=== PATIENT | male | born 1980 | race Caucasian/White ===

== ENCOUNTER 2019-11-12 15:22 | Emergency (ER) | payer BC ==
[~2019-11-12] VITALS: Ht 172.7 cm; Wt 100.0 kg
--- NOTE | 2019-11-12 15:42 | PHYS DOC ---
General Adult EDM: Chief Complaint: CHEST PAIN HPI: HPI: Patient is a 39 year old male who presents with states this afternoon he was at work when he began having midsternal chest pressure, shortness of air and dizziness. He states that when symptoms starting he was looking for a part at work but he was not doing anything stressful and there is nothing that gave him anxiety. He states he has not been stressed lately. He states it lasted a couple of minutes and then began to subside. He states that when EMS arrived it was already subsided. EMS gave him aspirin 324 mg and 1 nitro. Patient states he no longer has any symptoms. He currently denies chest pain, chest pressure, shortness of air, dizziness, headache, abdominal pain, nausea, vomiting diarrhea, fever, cough, numbness or tingling, focal weakness, vision changes. He denies any pain. He states that he is a smoker. Patient does drink a sixpack a day and 2 shots. Patient does have a history of anxiety. He states he has not been to a doctor for quite some time so he is unsure if he has any other comorbidities. Review of Systems: Review of Systems: Constitutional: Denies fever or chills. [] Eyes: Denies change in visual acuity. [] HENT: Denies nasal congestion or sore throat. [] Respiratory: Denies cough. + shortness of breath. [] Cardiovascular: chest pain or denies edema. [] GI: Denies abdominal pain, nausea, vomiting, bloody stools or diarrhea. [] : Denies dysuria. [] Musculoskeletal: Denies back pain or joint pain. [] Integument: Denies rash. [] Neurologic: Denies headache, focal weakness or sensory changes. Dizziness[] Endocrine: Denies polyuria or polydipsia. [] Lymphatic: Denies swollen glands. [] Psychiatric: Denies depression. +anxiety. [] Heart Score: HEART Score for Chest Pain: HEART Score for Chest Pain Response (Comments) Value History Slighlty/Non-Suspicious 0 ECG Normal 0 Age < 45 0 Risk Factors 1 or 2 Risk Factors 1 Troponin < Normal Limit 0 Total 1 Risk Factors: Risk Factors: DM, Current or recent (<one month) smoker, HTN, HLP, family h istory of CAD, obesity. Risk Scores: Score 0 - 3: 2.5% MACE over next 6 weeks - Discharge Home Score 4 - 6: 20.3% MACE over next 6 weeks - Admit for Clinical Observation Score 7 - 10: 72.7% MACE over next 6 weeks - Early Invasive Strategies Allergies: Allergies: Allergies Coded Allergies Type Severity Reaction Last Updated Verified No Known Drug Allergies 11/12/19 No Physical Exam: PE: Constitutional: Well developed, well nourished, no acute distress, non-toxic appearance. [] HENT: Normocephalic, atraumatic, bilateral external ears normal, oropharynx moist, no oral exudates, nose normal. [] Eyes: PERRLA, EOMI, conjunctiva normal, no discharge. [] Neck: Normal range of motion, no tenderness, supple, no stridor. [] Cardiovascular:Heart rate tachycardic regular rhythm, no murmur [] Lungs & Thorax: Bilateral breath sounds clear to auscultation [] Abdomen: Bowel sounds normal, soft, no tenderness, no masses, no pulsatile masses. [] Skin: Warm, dry, no erythema, no rash. [] Back: No tenderness, no CVA tenderness. [] Extremities: No tenderness, no cyanosis, no clubbing, ROM intact, Bilateral lower 1+ edema. [] Neurologic: Alert and oriented X 3, normal motor function, normal sensory function, no focal deficits noted. [] Psychologic: Affect normal, judgement normal, mood normal. [] EKG: EK and read by Dr. Alvarez as sinus tachycardia at 101 and no STEMI. [] Radiology/Procedures: Radiology/Procedures: [] Impression: [facility] [address] [place], [place] [id number] IMAGING REPORT Signed PATIENT: NELSY GIBBS ACCOUNT: [id number] : 1980 LOCATION: ER AGE: 39 SEX: M EXAM STATUS: PRE ER ORD. PHYSICIAN: MERNA GARCIA APRN REASON: chest pressure PROCEDURE: CHEST PA & LATERAL CHEST PA LATERAL History: chest pressure Comparison: None. Findings: Frontal and lateral views of the chest were obtained. The cardiomediastinal silhouette is normal. Pulmonary vasculature is normal. The lungs are clear. No pleural effusion or pneumothorax is seen. There is no acute bone abnormality. IMPRESSION: No acute cardiopulmonary process. Electronically signed by: Hernandez Shaw MD (11/12/2019 4:25 PM) [id number] DICTATED and SIGNED BY: HERNANDEZ SHAW MD DATE: 11/12/19 1625 Course & Med Decision Making: Course & Med Decision Making Pertinent Labs and Imaging studies reviewed. (See chart for details) See HPI. Patient does have 1+ lower extremity nonpitting edema bilaterally. Lungs are clear to auscultation in all lobes. Skin pink warm and dry. Alert and oriented x4. Speaks in full clear sentences. Patient states he does have a history of anxiety and states he has had anxiety attacks before but is on no medication. He states that he thinks this incident was his anxiety. Ambulatory with a steady gait. Heart score is a 1. Patient has not had any more chest pain, shortness of breath or dizziness since he has been here in the ED. EKG shows sinus rhythm and no STEMI. Troponin is normal. I have discussed this patient with Dr Alvarez and his care plan. Patient is discharged and to follow up with a primary care physician. [] [place] Disclaimer: Dragon Disclaimer: This electronic medical record was generated, in whole or in part, using a voice recognition dictation system. Departure Departure Impression: Primary Impression: Nonspecific chest pain Disposition: 01 HOME, SELF-CARE Condition: STABLE Referrals: CAL VITALE MD Patient Instructions: Chest Pain (Nonspecific) Additional Instructions: Follow up with a primary care provider as soon as possible. Your liver enzymes are elevated from alcohol use. Try to cut back your alcohol use. Drink plenty of fluids. If your chest pain returns or he began having shortness of breath dizziness or syncope return to the emergency room. Justicifation of Admission Dx: Justifications for Admission: Justification of Admission Dx: N/A MERNA GARCIA APRN Nov 12, 2019 15:42
[2019-11-12 16:06] LABS: BASO # 0.1 x10^3/uL (0.0-0.2); BASO % 1 % (0-3); EOS # 0.2 x10^3/uL (0.0-0.7); EOS % 2 % (0-3); HEMATOCRIT 42.9 % (39.0-53.0); HEMOGLOBIN 14.7 g/dL (13.0-17.5); LYMPH # 1.4 x10^3/uL (1.0-4.8); LYMPH % 16 % (24-48); MEAN CORPUSCULAR HEMOGLOBIN 33 pg (25-35); MEAN CORPUSCULAR HGB CONC 34 g/dL (31-37); MEAN CORPUSCULAR VOLUME 97 fL (79-100); MONO # 0.9 x10^3/uL (0.0-1.1); MONO % 11 % (0-9); NEUT # 6.1 x10^3/uL (1.8-7.7); NEUT % 70 % (31-73); PLATELET COUNT 198 x10^3/uL (140-400); RED BLOOD COUNT 4.43 x10^6/uL (4.30-5.70); RED CELL DISTRIBUTION WIDTH 13.9 % (11.5-14.5); WHITE BLOOD COUNT 8.7 x10^3/uL (4.0-11.0)
[2019-11-12 16:07] LABS: BILIRUBIN,URINE NEGATIVE (NEG); CLARITY,URINE CLEAR; COLOR,URINE YELLOW; NITRITE,URINE NEGATIVE (NEG); PROTEIN,URINE NEGATIVE (NEG-TRACE)
--- NOTE | 2019-11-12 16:28 | RAD ---
CHEST PA LATERAL History: chest pressure Comparison: None. Findings: Frontal and lateral views of the chest were obtained. The cardiomediastinal silhouette is normal. Pulmonary vasculature is normal. The lungs are clear. No pleural effusion or pneumothorax is seen. There is no acute bone abnormality. IMPRESSION: No acute cardiopulmonary process. Electronically signed by: Hernandez Black MD (11/12/2019 4:25 PM) [facility]
[2019-11-12 16:40] LABS: BACTERIA,URINE 0 /HPF (0-FEW); SQUAMOUS EPITHELIAL CELL,UR OCC /LPF
[2019-11-12 16:47] LABS: AMPHETAMINE/METHAMPHETAMINE NEG (NEG); BARBITURATES NEG (NEG); BENZODIAZEPINES NEG (NEG); COCAINE NEG (NEG); METHADONE NEG (NEG); OPIATES NEG (NEG)
[2019-11-12 16:48] LABS: CANNABINOIDS NEG (NEG); PHENCYCLIDINE NEG (NEG)
[2019-11-12 16:50] LABS: ALBUMIN/GLOBULIN RATIO 0.7 (1.0-1.7); CREATININE 0.8 mg/dL (0.7-1.3); GFR 108.2; POTASSIUM 4.2 mmol/L (3.5-5.1); TOTAL BILIRUBIN 0.6 mg/dL (0.2-1.0); TOTAL PROTEIN 7.4 g/dL (6.4-8.2)
[2019-11-12 17:00] VITALS: BP 188/95
[2019-11-12 19:16] LABS: PROTHROMBIN TIME PATIENT 14.1 SEC (11.7-14.0)
--- NOTE | 2019-11-13 04:11 | EKG ---
[facility] [address] [place] [address] Test Date: 2019-11-12 Test Time: 15:30:23 Pat Name: NELSY GIBBS Department: Room: Gender: M Director Strategy: Evan : 1980 Requested By: MERNA GARCIA Order Number: [id number] Reading MD: Measurements Intervals [place] Rate: 101 P: -89 AK: 116 QRS: 44 QRSD: 90 T: 52 QT: 346 QTc: 455 Interpretive Statements SINUS TACHYCARDIA INCOMPLETE RIGHT BUNDLE BRANCH BLOCK NO SPECIFIC ECG ABNORMALITIES RI6.02 No previous ECG available for comparison
== END 2019-11-12 17:20 | disposition home or self-care (01) ==
LOC: ER 15:22
DX: R07.89 Other chest pain (principal); R42 Dizziness and giddiness; R06.02 Shortness of breath
CPT/HCPCS: 36415; 71046; 80053; 80307; 81001; 83690; 83880; 84484; 85025; 85610; 93005; 99285

== ENCOUNTER 2020-04-10 17:30 | Emergency (ER) | payer BC, MEDICAID ==
[~2020-04-10] VITALS: Ht 172.7 cm; Wt 104.0 kg
[2020-04-10] MEDS ORDERED: IV NORMAL SALINE 1000ML BAG 1,000 ML IV SCH (18:15)
[2020-04-10 18:19] LABS: BASO # 0.1 x10^3/uL (0.0-0.2); BASO % 1 % (0-3); EOS # 0.1 x10^3/uL (0.0-0.7); EOS % 1 % (0-3); HEMATOCRIT 35.1 % (39.0-53.0); HEMOGLOBIN 12.3 g/dL (13.0-17.5); LYMPH # 1.1 x10^3/uL (1.0-4.8); LYMPH % 11 % (24-48); MEAN CORPUSCULAR HEMOGLOBIN 34 pg (25-35); MEAN CORPUSCULAR HGB CONC 35 g/dL (31-37); MEAN CORPUSCULAR VOLUME 97 fL (79-100); MONO # 1.1 x10^3/uL (0.0-1.1); MONO % 11 % (0-9); NEUT # 8.1 x10^3/uL (1.8-7.7); NEUT % 77 % (31-73); PLATELET COUNT 147 x10^3/uL (140-400); RED BLOOD COUNT 3.61 x10^6/uL (4.30-5.70); RED CELL DISTRIBUTION WIDTH 14.6 % (11.5-14.5); WHITE BLOOD COUNT 10.5 x10^3/uL (4.0-11.0)
[2020-04-10 18:29] LABS: PROTHROMBIN TIME PATIENT 15.5 SEC (11.7-14.0)
[2020-04-10] MEDS ORDERED: PANTOPRAZOLE IV PUSH 40 MG VIAL. IVP ONE (18:30)
[2020-04-10 18:33] LABS: CALCIUM 7.8 mg/dL (8.5-10.1); CREATININE 0.6 mg/dL (0.7-1.3); POTASSIUM 4.1 mmol/L (3.5-5.1)
[2020-04-10 18:39] LABS: ALBUMIN 2.2 g/dL (3.4-5.0); DIRECT BILIRUBIN 4.4 mg/dL (0.0-0.2); TOTAL BILIRUBIN 6.2 mg/dL (0.2-1.0); TOTAL PROTEIN 6.4 g/dL (6.4-8.2)
[2020-04-10 18:42] LABS: BARBITURATES NEG (NEG); BENZODIAZEPINES NEG (NEG); CANNABINOIDS NEG (NEG); COCAINE NEG (NEG); FECAL OB PT NEGATIVE (NEG); METHADONE NEG (NEG); OPIATES NEG (NEG); PHENCYCLIDINE NEG (NEG)
[2020-04-10 18:43] LABS: AMPHETAMINE/METHAMPHETAMINE NEG (NEG)
--- NOTE | 2020-04-10 18:44 | PHYS DOC ---
Past Medical History Past Medical History: Alcoholism, Anxiety, Hypertension Additional Past Medical Histor: PANIC ATTACKS Past Surgical History: No Surgical History Smoking Status: Current Every Day Smoker Alcohol Use: Heavy General Adult EDM: Chief Complaint: RECTAL BLEED HPI: HPI: 40-year-old male past medical history significant for hypertension, tobacco dependence and alcoholism, presents the ED with complaints of posttussive emesis, complaints of bloody vomiting for the past few days with associated loose black stools described as "black speckled," believed to be 2/2 self- diagnosed hemorrhoids. States he drinks 1 pint of fireball and 8-9 beers daily for over a year. No history of GI bleed or blood transfusions. Was admitted back in November for chest pain and started on lisinopril, follows with Dr. Murguia. Reports his cough is related to his lisinopril, is not productive. St ates his loose stools are likely related to his alcohol intake. Was seen in urgent care 1 month ago for left lower extremity leg swelling and was diagnosed with a rash. Also c/o left flank pain with "dark urine." Has not taken any antibiotics or [id number] urinary relief including Azo in the past month. When asked about the color of his eyes he states this is new. No PSH. No history of Covid in the past year. Review of Systems: Review of Systems: Constitutional: Denies fever or chills. [] Eyes: Denies change in visual acuity. [] HENT: Denies nasal congestion or sore throat. [] Respiratory: Denies dyspnea or hemoptysis Cardiovascular: Denies chest pain or syncope GI: Denies nausea, constipation or hematochezia : Denies dysuria or increased urinary frequency, Musculoskeletal: Denies midline back pain, joint pain or swelling Integument: Denies rash or diaphoresis Neurologic: Denies headache, neck stiffness, focal weakness or sensory changes. [] Endocrine: Denies polyuria or polydipsia. [] Lymphatic: Denies swollen glands. [] Psychiatric: Denies depression or anxiety. [] Heart Score: Risk Factors: Risk Factors: DM, Current or recent (<one month) smoker, HTN, HLP, family history of CAD, obesity. Risk Scores: Score 0 - 3: 2.5% MACE over next 6 weeks - Discharge Home Score 4 - 6: 20.3% MACE over next 6 weeks - Admit for Clinical Observation Score 7 - 10: 72.7% MACE over next 6 weeks - Early Invasive Strategies Current Medications: Current Medications Medications (Trade) Dose Ordered Sig/Sharona Start Time Stop Time Status Last Admin Dose Admin Pantoprazole Sodium (PROTONIX VIAL for IV PUSH) 80 mg 1X ONCE 04/10/20 18:30 04/10/20 18:31 UNV Sodium Chloride 1,000 ml @ 1,000 mls/hr Q1H 04/10/20 18:15 04/10/20 19:14 Allergies: Allergies: Allergies Coded Allergies Type Severity Reaction Last Updated Verified No Known Drug Allergies 11/12/19 No Physical Exam: PE: Constitutional: Well developed, well nourished, no acute distress, non-toxic appearance. HENT: Normocephalic, atraumatic, bilateral scleral icterus, dry mucous membranes Eyes: EOMI, conjunctiva normal, no discharge. Neck: Normal range of motion, supple, Cardiovascular: S1/2 present, mild tachycardia 104 bpm Lungs & Thorax: Speaking in full sentences, bilateral equal chest rise, no tachypnea or increased work of breathing Abdomen: soft, no tenderness, obese abdomen with significant hepatomegaly approximately 5 inches below rib margin, no Clemons sign, no Rovsing sign, no tenderness at McBurney's point, no rigidity or guarding, ventral hernia, +caput medusae Skin: Warm, dry, no erythema, no rash. [] Back: No tenderness, +left CVA tenderness. [] Extremities: No tenderness, no cyanosis, left calve slightly larger than right calve but no swelling, equal PT pulses Neurologic: Alert and oriented X 3, normal motor function, normal sensory function, no focal deficits noted, steady gait, no ataxia Psychologic: Affect normal, judgement normal, mood normal. [] RECTAL: Chaperoned by RN, no thrombosed hemorrhoids, no external fissures or active bright red blood per rectum, scant stool in rectal vault that was light brown-colored -no gross melena or hematochezia, tolerated exam Current Patient Data: Labs: Laboratory Tests Test 04/10/20 17:58 White Blood Count 10.5 x10^3/uL (4.0-11.0) Red Blood Count 3.61 x10^6/uL (4.30-5.70) L Hemoglobin 12.3 g/dL (13.0-17.5) L Hematocrit 35.1 % (39.0-53.0) L Mean Corpuscular Volume 97 fL (79-100) Mean Corpuscular Hemoglobin 34 pg (25-35) Mean Corpuscular Hemoglobin Concent 35 g/dL (31-37) Red Cell Distribution Width 14.6 % (11.5-14.5) H Platelet Count 147 x10^3/uL (140-400) Neutrophils (%) (Auto) 77 % (31-73) H Lymphocytes (%) (Auto) 11 % (24-48) L Monocytes (%) (Auto) 11 % (0-9) H Eosinophils (%) (Auto) 1 % (0-3) Basophils (%) (Auto) 1 % (0-3) Neutrophils # (Auto) 8.1 x10^3/uL (1.8-7.7) H Lymphocytes # (Auto) 1.1 x10^3/uL (1.0-4.8) Monocytes # (Auto) 1.1 x10^3/uL (0.0-1.1) Eosinophils # (Auto) 0.1 x10^3/uL (0.0-0.7) Basophils # (Auto) 0.1 x10^3/uL (0.0-0.2) Prothrombin Time 15.5 SEC (11.7-14.0) H Prothrombin Time INR 1.3 (0.8-1.1) H Activated Partial Thromboplast Time 37 SEC (24-38) Magnesium Level 2.0 mg/dL (1.8-2.4) Laboratory Tests 04/10/20 17:58 Vital Signs: Vital Signs Date Time Temp Pulse Resp B/P (MAP) Pulse Ox O2 Delivery O2 Flow Rate FiO2 04/10/20 17:44 98.6 101 24 136/61 (86) Room Air 98.6 EKG: EKG: Sinus tachycardia at 101 bpm, no axis deviation, QTC 449, T wave inversion V2, no ST elevations or ST depressions Radiology/Procedures: Radiology/Procedures: []IMAGING REPORT Signed PATIENT: NELSY GIBBS ACCOUNT: [id number] : 1980 LOCATION: ER AGE: 40 SEX: M EXAM STATUS: REG ER ORD. PHYSICIAN: DU BALDWIN DO REASON: hematochezia PROCEDURE: CHEST AP ONLY XR CHEST 1V INDICATION: hematochezia . COMPARISON STUDY: None. FINDINGS: Lungs: Normal lung volume. No pulmonary mass or consolidation. The tracheobronchial tree and hilar structures are normal. Pleura: No pleural effusion or pneumothorax. Heart and Mediastinum: The cardiomediastinal silhouette is normal. The great vessels of the thorax are normal. Bones and Soft Tissues: The bones and soft tissues are within normal limits. IMPRESSION: No acute cardiopulmonary process. Electronically signed by: Lam Best MD (04/10/2020 6:53 PM) [facility] DICTATED and SIGNED BY: LAM BEST MD DATE: 04/10/20 [id number] IMAGING REPORT Signed PATIENT: NELSY GIBBS ACCOUNT: [id number] : 1980 LOCATION: ER AGE: 40 SEX: M EXAM STATUS: REG ER ORD. PHYSICIAN: DU BALDWIN DO REASON: melena, omni 300, 75 ml iv PROCEDURE: CT ABD PELV W/ IV CONTRST ONLY Exam: CT of abdomen and pelvis with contrast INDICATION: Blood in stool TECHNIQUE: Sequential axial images through the abdomen and pelvis obtained following the administration of 75 mL of Omni 300 IV contrast. Sagittal and coronal reformatted images were reconstructed from the axial data and reviewed. Comparisons: None FINDINGS: Heart size is normal. No pericardial effusion. Visualized lung bases are clear. No pleural effusion. Diffuse hepatic steatosis. Spleen, pancreas, and adrenals are unremarkable. Gallstones are noted within the gallbladder. No perinephric inflammation or hydronephrosis. No renal or ureteral calculi are identified. Bladder is decompressed not well evaluated. Prostate is not enlarged. Large and small bowel are unremarkable. Appendix is normal. There is a small amount of free fluid noted in the abdomen. No free intra-abdominal air. Abdominal aorta has a normal course and caliber. Bowel vasculature is patent. No enlarged abdominal lymph nodes are identified. No suspicious osseous lesions or acute fractures. IMPRESSION: 1. Heterogenous appearance of the liver parenchyma, may relate to steatohepatitis. Correlate with LFTs 2. Small amount of free fluid in the abdomen, may be reactive to the above process. 3. Cholelithiasis Exposure: One or more of the following in the visualized dose reduction techniques were utilized for this examination: 1. Automated exposure control 2. Adjustment of the MA and/or KV according to patient size 3. Use of iterative of reconstructive technique Electronically signed by: Jeannine Lazcano MD (04/10/2020 7:22 PM) [facility] DICTATED and SIGNED BY: JEANNINE LAZCANO MD DATE: 04/10/20 [id number] 0 Course & Med Decision Making: Course & Med Decision Making Pertinent Labs and Imaging studies reviewed. (See chart for details) Concern for conjugated hyperbilirubinemia in the setting of alcohol intoxication and elevated AST (c/w etoh use). Mild normocytic anemia, hyponatremia and hypocalcemia. Chest x-ray with no acute process. CT abdomen pelvis w/steatohepatitis and cholelithiasis. U/A w/nitrite positive uti. Patient with no active hematemesis in the ED. Occult negative for blood-consistent with physical exam. I advised and recommended inpatient admission for mild alcohol withdrawal symptoms for further eval, gi consultation and management of likely, alcohol withdrawal (on re-eval pt with mild tremors), including US of LLE to assess for dvt-no overnight pecan grower if can obtain us in am. Patient with decision-making capacity and elects for outpatient management, wishes to attempt detox at home and understands he will need an outpt lle us to assess for dvt (has no chest pain, dyspnea, back pain, or hemoptysis). Will prescribe Vantin, Librium taper, vitamins, folic acid, b12 and thiamine daily. Will discharge drew e with strict ED return precautions were given for confusion, head injury, syncope, tremors. Encouraged urgent outpatient follow-up with PMD and GI to evaluate conjugated hyperbilirubinemia. Life-threatening processes were considered but are low suspicion at this time, given history, physical exam and ED workup. Pt was educated on all prescription medications and adverse effects. All patient's questions were answered and pt was stable at time of discharge. Life/limb-threatening differential includes but is not limited to, acute coronary syndrome/myocardial infarction, Boerhaave's, DKA, intracranial hemorrhage, ischemic bowel, meningitis, sepsis, surgical abdomen (AAA), toxidrome (drug over/overdose/carbon monoxide, etc), PE, ovarian/testicular torsion, trauma, or infection/sepsis. I spoken with the patient and her caregivers. I explained the patient's condition, diagnoses and treatment plan based on the information available to me at this time. I have answered the patient and her caregiver's questions and addressed any concerns. The patient and her caregivers have a good under standing of patient's diagnosis, condition and treatment plan as can be expected at this point. Vital signs have been stable. Patient's condition is stable and appropriate for discharge from the emergency department. Patient will pursue further outpatient evaluation with primary care physician or other designated or consulting physician as outlined in the discharge instructions. The patient and/or caregivers are agreeable to this plan of care and follow-up instructions have been explained in detail. The patient and/or caregivers have received these instructions in written form and have expressed an understanding of the discharge instructions. The patient and/or caregivers are aware that any significant change of condition or worsening of symptoms should prompt immediate return to this or the closest emergency department or call to 1. [place] Disclaimer: Sosh Disclaimer: This electronic medical record was generated, in whole or in part, using a voice recognition dictation system. Departure Departure Impression: Primary Impression: Alcohol intoxication Additional Impressions: Conjugated hyperbilirubinemia UTI (urinary tract infection) Disposition: 01 DC HOME SELF CARE/HOMELESS Condition: STABLE Referrals: NO PCP (PCP) FOLLOW UP WITH FAMILY MEDICINE: Family Medicine Address: [address] [place] [id number] Patient Instructions: Alcohol Intoxication, Alcohol Withdrawal, Bilirubin, Urinary Tract Infection Additional Instructions: FOLLOW UP WITH GASTROENTEROLOGY: Gastroenterology [facility] Address: [address] [place] [address] EMERGENCY DEPARTMENT GENERAL DISCHARGE INSTRUCTIONS Thank you for coming to [facility] Emergency Department (ED) today and trusting us with you care. We trust that you had a positive experience in our Emergency Department. If you wish to speak to the department management, you may call the Director at [phone]. YOUR FOLLOW UP INSTRUCTIONS ARE FOLLOWS: 1. Do you have a private Doctor? If you do not have a private doctor, please ask for a resource list of physicians or clinics that may be able to assist you with follow up care. 2. The Emergency Physicain has interpreted your x-rays. The X-Ray specialist will also review them. If there is a change in the findings, you will be notified in 48 hours when at all possible. 3. A lab test or culture has been done, your results will be reviewed and you will be notified if you need a change in treatment. ADDITIONAL INSTRUCTIONS AND INFORMATION: 1. Your care today has been supervised by a physician who is specially trained in emergency care. Many problems require more than one evaluation for a complete diagnosis and treatment. We recommend that you schedule your follow up appointment as recomme nded to ensure complete treatment of you illness or injury. If you are unable to obtain follow up care and continue to have a problem, or if your condition worsens, we recommend that you return to the ED. 2. We are not able to safely determine your condition over the phone nor are we able to give sound medical advice over the phone. For these safety reasons, if you call for medical advice we will ask you to come to the ED for further evaluation. 3. If you have any questions regarding these discharge instructions please call the ED at [phone]. SAFETY INFORMATION: In the interest of safety, wellness, and injury prevention; we encourage you to wear your sealbelt, if you smoke; quite smoking, and we encourage family to use a protective helmet for bicycling and other sporting events that present an increased risk for head injury. IF YOUR SYMPTOMS WORSEN OR NEW SYMPTOMS DEVELOP, OR YOU HAVE CONCERNS ABOUT YOUR CONDITION; OR IF YOUR CONDITION WORSENS WHILE YOU ARE WAITING FOR YOUR FOLLOW UP APPOINTMENT; EITHER CONTACT YOUR PRIMARY CARE DOCTOR, THE PHYSICIAN WHOSE NAME AND NUMBER YOU WERE GIVEN, OR RETURN TO THE ED IMMEDIATELY. Scripts Chlordiazepoxide Hcl (CHLORDIAZEPOXIDE HCL) 25 Mg Capsule 25 MG PO PRN PRN for WITHDRAWAL IRRITABILITY MDD 300 mg/daily, #30 CAP take 2 tablets by mouth, every 8 hours x 2 days, take 1 tablet by mouth, every 8 hours x 2 days, take 1 tablet by mouth, every 8 hours prn Prov: DU BALDWIN DO 04/10/20 [chlor] No Conflict Check Prov: NICOLASADU Leach DO 04/10/20 Mecobalamin (B12 Active) 1,000 Mcg Tab.chew 1000 MCG PO DAILY for 30 Days, #30 TAB.CHEW Prov: DU BALDWIN DO 04/10/20 Multivitamin (Multivitamin) 1 Each Tablet 1 EACH PO DAILY for 30 Days, #30 TAB Prov: DU BALDWIN DO 04/10/20 Thiamine Hcl (VITAMIN B-1) 100 Mg Tablet 1 TAB PO DAILY for 30 Days, #30 TAB 0 Refills Prov: DU BALDWIN DO 04/10/20 Folic Acid (Folic Acid) 0.8 Mg Capsule 1 CAP PO DAILY for 30 Days, #30 CAP 0 Refills Prov: DU BALDWIN DO 04/10/20 Cefpodoxime Proxetil (CEFPODOXIME PROXETIL) 200 Mg Tablet 1 TAB PO BID for 14 Days, #28 TAB Prov: DU BALDWIN DO 04/10/20 DU BALDWIN DO Apr 10, 2020 18:44
--- NOTE | 2020-04-10 18:56 | RAD ---
XR CHEST 1V INDICATION: hematochezia . COMPARISON STUDY: None. FINDINGS: Lungs: Normal lung volume. No pulmonary mass or consolidation. The tracheobronchial tree and hilar st ructures are normal. Pleura: No pleural effusion or pneumothorax. Heart and Mediastinum: The cardiomediastinal silhouette is normal. The great vessels of the thorax ar e normal. Bones and Soft Tissues: The bones and soft tissues are within normal limits. IMPRESSION: No acute cardiopulmonary process. Electronically signed by: Ten Best MD (04/10/2020 6:53 PM) [facility]
[2020-04-10] MEDS ORDERED: IOHEXOL 300 MG/ML 100ML VIAL. IV ONE (19:00)
[2020-04-10] MEDS ORDERED: CONTRAST GIVEN. MC PRN (19:00)
--- NOTE | 2020-04-10 19:24 | RAD ---
Exam: CT of abdomen and pelvis with contrast INDICATION: Blood in stool TECHNIQUE: Sequential axial images through the abdomen and pelvis obtained following the administrati on of 75 mL of Omni 300 IV contrast. Sagittal and coronal reformatted images were reconstructed from the axial data and reviewed. Comparisons: None FINDINGS: Heart size is normal. No pericardial effusion. Visualized lung bases are clear. No pleural effusion. Diffuse hepatic steatosis. Spleen, pancreas, and adrenals are unremarkable. Gallstones are noted with in the gallbladder. No perinephric inflammation or hydronephrosis. No renal or ureteral calculi are identified. Bladder is decompressed not well evaluated. Prostate is not enlarged. Large and small bowel are unremarkable. Appendix is normal. There is a small amount of free fluid not ed in the abdomen. No free intra-abdominal air. Abdominal aorta has a normal course and caliber. Bowel vasculature is patent. No enlarged abdominal lymph nodes are identified. No suspicious osseous lesions or acute fractures. IMPRESSION: 1. Heterogenous appearance of the liver parenchyma, may relate to steatohepatitis. Correlate with LF Ts 2. Small amount of free fluid in the abdomen, may be reactive to the above process. 3. Cholelithiasis Exposure: One or more of the following in the visualized dose reduction techniques were utilized for this examination: 1. Automated exposure control 2. Adjustment of the MA and/or KV according to patient size 3. Use of iterative of reconstructive technique Electronically signed by: Jeannine Erwin MD (04/10/2020 7:22 PM) [facility]
[2020-04-10 21:03] LABS: BILIRUBIN,URINE LARGE (NEG); CLARITY,URINE TURBID; COLOR,URINE RED; NITRITE,URINE POSITIVE (NEG); PROTEIN,URINE NEGATIVE (NEG-TRACE)
[2020-04-10 21:09] LABS: AMORPHOUS SEDIMENT,UR PRESENT /HPF
[2020-04-10 21:10] LABS: BACTERIA,URINE FEW /HPF (0-FEW); RBC,URINE 0 /HPF (0-2)
[2020-04-10 21:12] VITALS: BP 152/67
[2020-04-10] MEDS ORDERED: cefTRIAXone IV Push 1 GM VIAL. IVP ONE (21:30)
[2020-04-10] MEDS ORDERED: THIA100T57 PO (21:36)
[2020-04-10] MEDS ORDERED: MULT-766 PO (21:36)
[2020-04-10] MEDS ORDERED: MECO10005 PO (21:36)
[2020-04-10] MEDS ORDERED: FOLI0.8C PO (21:36)
[2020-04-10] MEDS ORDERED: CEFP200T PO (21:36)
[2020-04-10] MEDS ORDERED: CHLO25CA9 PO (21:43)
[2020-04-10] MEDS ORDERED: CHLOR (21:43)
[2020-04-10] MEDS ORDERED: VITAMIN B12,B9,B6 COMPLEX 1 TABLET. PO ONE (22:00)
[2020-04-10] MEDS ORDERED: MULTIVITAMIN with MINERAL TABLET. PO ONE (22:00)
[2020-04-10] MEDS ORDERED: FOLIC ACID 1 MG TABLET. PO ONE (22:00)
[2020-04-10] MEDS ORDERED: THIAMINE 100 MG TABLET. PO ONE (22:00)
--- NOTE | 2020-04-13 11:04 | NUR ---
IP:Attempted to contact pt concerning COVID results. No answer.
--- NOTE | 2020-04-13 11:54 | EKG ---
[facility] [address] [place] [address] Test Date: 2020-04-10 Test Time: 17:49:48 Pat Name: NELSY GIBBS Department: Room: Gender: M [employer]ending [employer]or: : 1980 Requested By: DU BALDWIN Order Number: [id number] Reading MD: Kobe Burgess Measurements Intervals [place] Rate: 101 P: 227 [place]: 106 QRS: 48 QRSD: 92 T: 59 QT: 346 QTc: 449 Interpretive Statements SINUS TACHYCARDIA Electronically Signed On 04-14-2020 9:52:11 [employer] by Kobe Burgess
== END 2020-04-10 22:14 | disposition home or self-care (01) ==
LOC: ER 17:30
DX: E80.6 Other disorders of bilirubin metabolism (principal); N39.0 Urinary tract infection, site not specified; Z20.822 Contact with and (suspected) exposure to COVID-19; K80.20 Calculus of gallbladder without cholecystitis without obstruction; I10 Essential (primary) hypertension; F10.229 Alcohol dependence with intoxication, unspecified; Y90.6 Blood alcohol level of 120-199 mg/100 ml; F17.200 Nicotine dependence, unspecified, uncomplicated
CPT/HCPCS: 36415; 71045; 74177; 80048; 80076; 80307; 81001; 82274; 82550; 83010; 83615; 83690; 83735; 84484; 85025; 85384; 85610; 85730; 87086; 87426; 96361; 96374; 96375; 99285; C9113; G0480; J0696; J7030; Q9967; U0003; 93005; C9803